=== PATIENT | female | born 1995 | race Caucasian/White ===

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

== ENCOUNTER 2017-02-20 08:18 | Emergency (ER) | payer SELFPAY ==
[~2017-02-20] VITALS: Ht 162.6 cm; Wt 95.5 kg
[~2017-02-20 08:18] MED LIST changes: +SUMA25TA3 PO
[2017-02-20 08:21] VITALS: Ht 162.6 cm; Wt 95.5 kg
[2017-02-20] MEDS ORDERED: CEPH-443 PO (08:57)
--- NOTE | 2017-02-20 09:08 | ERD ---
ER Documentation Chief Complaint Chief Complaint pt bib family with c/o left great toe infection since yesterday HPI 21-year-old female presented ED was infection of her left big toe. Patient stated that she went to pedicure yesterday. When she got home after pedicure, she noticed pain and redness on the medial aspect the left big toenail, later she noticed pus draining from the area. Patient reports history of frequent ingrown toenail, she goes to pedicure regularly to take care of the ingrown toenails. Denies fever or chills. Denies pain with weightbearing. ROS All systems reviewed and are negative except as per history of present illness. 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 02/20/17 Sumatriptan Succinate* (Sumatriptan Succinate*) 25 Mg Tablet, 25 MG PO BID Y for MIGRAINE HEADACHE for 10 Days, TAB May repeat after 2 hours if needed; MAX 200 mg/24 hours Prov:AUGUST STERLING PA-C 12/29/16 Reported Medications Multivit/Min/Fol Ac/Iron/Pren* ( S*) 1 Tab Tab, 1 TAB PO DAILY, TAB 05/23/16 Allergies Allergies: Coded Allergies: No Known Allergy (Unverified , 05/13/15) PMhx/Soc History of Surgery: Yes (FOOT SURGERY) Anesthesia Reaction: No Hx Neurological Disorder: Yes (FREQUENT HEADACHES) Hx Respiratory Disorders: No Hx Cardiac Disorders: No Hx Psychiatric Problems: No Hx Miscellaneous Medical Probl: No Hx Alcohol Use: No Hx Substance Use: No Hx Tobacco Use: No Physical Exam Vitals Vital Signs Date Time Temp Pulse Resp B/P Pulse Ox O2 Delivery O2 Flow Rate FiO2 02/20/17 08:21 98.3 67 18 137/72 98 Physical Exam General: Well-developed, well-nourished, conscious and coherent, in no distress Skin: Warm and dry without rash, good texture and turgor Head: Normocephalic without evidence of trauma Eyes: Sclera and conjunctivae normal; pupils equal, round, and reactive to light; extraocular movements are intact Chest: Normal AP diameter. Good expansion without retractions. Nontender. Lungs are clear to auscultate bilaterally with good tidal volume Heart: Regular rate and rhythm. No murmur, rub, or gallops heard Abdomen: Soft and nontender without masses, guarding, or rebound. Bowel sounds are active. No hepatosplenomegaly Back: Without spinal or CVA tenderness Pelvis: Nontender to palpation and stable to compression Extremities: Left big toe erythematous and tender at the medial aspect of the toenail, no purulent drainage. No ingrown toenail noted. Full range of motion. Good strength bilaterally. No clubbing, cyanosis, or edema. Peripheral pulses are intact. Sensation intact Neuro: Alert and oriented 4, GCS 15. Cranial nerves grossly intact. Motor and sensory exams nonfocal. Moves all extremities. Speech clear. Gait normal Procedures/MDM Well-appearing 21-year-old female presented to ED with what appears to be paronychia after pedicure. I suspect that she incurred a infection from a minor cut secondary to pedicure. No sign of severe cellulitis or osteomyelitis. I doubt infection is secondary to ingrown toenail. I do not feel nail excision is needed at this time. Patient is given prescription to Keflex, and advised follow-up with her PCP. If the infection is not responding to Keflex, we may need to give her coverage for Pseudomonas. Patient appears well, stable for discharge and outpatient management. Medical decision making shared with patient and family. Education provided to patient and family. Patient and family expressed understanding of the plan. Medications on discharge: Keflex. Follow-up: Primary care provider in 2-3 days or return to ED if worse. Disclaimer: Inadvertent spelling and grammatical errors are likely due to EHR/ dictation software use and do not reflect on the overall quality of patient care. Also, please note that the electronic time recorded on this note does not necessarily reflect the actual time of the patient encounter. Departure Diagnosis: Primary Impression: Paronychia of great toe, left Condition: Stable Patient Instructions: Understanding Ingrown Toenails, Paronychia Additional Instructions: Call your primary care doctor TOMORROW for an appointment during the next 2-3 days.See the doctor sooner or return here if your condition worsens before your appointment time. KRYSTAL SEO NP Feb 20, 2017 09:08
== END 2017-02-20 09:30 | disposition home or self-care (01) ==
LOC: FTE 08:18
DX: L03.032 Cellulitis of left toe (principal)
CPT/HCPCS: 99283

== ENCOUNTER 2017-02-21 21:30 | Emergency (ER) | payer MEDICAID ==
[~2017-02-21] VITALS: Ht 165.1 cm; Wt 96.4 kg
[~2017-02-21 21:30] MED LIST changes: +CEPH-443 PO
[2017-02-21 21:40] VITALS: Ht 165.1 cm; Wt 96.4 kg
[2017-02-22] MEDS ORDERED: METOCLOPRAMIDE 10 MG INJ IV ONE (00:30)
[2017-02-22] MEDS ORDERED: DIPHENHYDRAMINE 50 MG INJ IV ONE (00:30)
[2017-02-22] MEDS ORDERED: SOD CHLORIDE 0.9% 500 ML IV ONE (00:30)
[2017-02-22] MEDS ORDERED: FIORICET PO (01:14)
[2017-02-22] MEDS ORDERED: PROC10TA10 PO (01:14)
--- NOTE | 2017-02-22 01:17 | ERD ---
ER Documentation Chief Complaint Chief Complaint headache x 1 day HPI 21-year-old female presents with a headache 1 day. She has a history of migraines to feel the same. Headache is on the right side and associated with some photophobia. She has no fevers or chills. She has not had any trauma recently. She was unable to take care of her head with her home pain medications she sometimes is able to switch presents to the ER for help. ROS All systems reviewed and are negative except as per history of present illness. Medications Home Meds Active Scripts Prochlorperazine* (Prochlorperazine*) 10 Mg Tablet, 10 MG PO TID for HEADACHE, # 10 TAB Prov:GUERDA KUHN DO 02/22/17 Acetamin/Butalbital/Caffeine* (Fioricet*) [id number] Tab, 1 TAB PO Q4H Y for PAIN LEVEL 1-5, #10 TAB Prov:GUERDA KUHN DO 02/22/17 Cephalexin* (Keflex*) 500 Mg Capsule, 500 MG PO QID for 5 Days, CAP Prov:KRYSTAL SEO. CARE CONNECTOR 02/20/17 Sumatriptan Succinate* (Sumatriptan Succinate*) 25 Mg Tablet, 25 MG PO BID Y for MIGRAINE HEADACHE for 10 Days, TAB May repeat after 2 hours if needed; MAX 200 mg/24 hours Prov:AUGUST STERLING PA-C 12/29/16 Reported Medications Multivit/Min/Fol Ac/Iron/Pren* ( S*) 1 Tab Tab, 1 TAB PO DAILY, TAB 05/23/16 Allergies Allergies: Coded Allergies: No Known Allergy (Unverified , 02/21/17) PMhx/Soc History of Surgery: Yes (FOOT SURGERY) Anesthesia Reaction: No Hx Neurological Disorder: Yes (FREQUENT HEADACHES) Hx Respiratory Disorders: No Hx Cardiac Disorders: No Hx Psychiatric Problems: No Hx Miscellaneous Medical Probl: No Hx Alcohol Use: No Hx Substance Use: No Hx Tobacco Use: No Physical Exam Vitals Vital Signs Date Time Temp Pulse Resp B/P Pulse Ox O2 Delivery O2 Flow Rate FiO2 02/22/17 00:59 97.8 73 20 95 Room Air 02/21/17 21:40 98.3 71 20 128/82 98 Physical Exam Const: [] Mild distress Head: Atraumatic Eyes: Normal Conjunctiva, EOMI, PERRLA ENT: Normal External Ears, Nose and Mouth. Neck: Full range of motion..~ No meningismus. Skin: No petechiae or rashes Back: No midline or flank tenderness Ext: No cyanosis, or edema Neur: Awake and alert and oriented 3, cranial nerves II through XII intact, cerebellar finger to nose normal, normal gait. Psych: Normal Mood and Affect Results 24 hrs Current Medications Medications (Trade) Dose Ordered Sig/Pedrito Route PRN Reason Start Time Stop Time Status Last Admin Dose Admin Metoclopramide HCl (Reglan) 10 mg ONCE ONCE IV 02/22/17 00:30 02/22/17 00:31 DC 02/22/17 00:25 Diphenhydramine HCl 12.5 mg 12.5 mg ONCE ONCE IV 02/22/17 00:30 02/22/17 00:31 DC 02/22/17 00:25 Sodium Chloride (NS) 500 ml @ 500 mls/hr Q1H ONCE IV 02/22/17 00:30 02/22/17 01:29 02/22/17 00:29 Departure Diagnosis: Primary Impression: Acute headache Condition: Stable Patient Instructions: Headache, Migraine (Classical) Additional Instructions: Call your primary care doctor TOMORROW for an appointment during the next 2-3 days.See the doctor sooner or return here if your condition worsens before your appointment time. GUERDA KUHN DO Feb 22, 2017 01:17
[2017-02-22 01:28] VITALS: BP 118/60; PULSE 71; RESP 16; TEMP 97.8
== END 2017-02-22 01:28 | disposition home or self-care (01) ==
LOC: FTE 21:30
DX: R51 Headache (principal)
CPT/HCPCS: 96374; 96375; J1200; J2765; J7040; Z7502

== ENCOUNTER 2017-09-08 06:23 | Emergency (ER) | END 2017-09-08 08:12 | disposition home or self-care (01) ==

== ENCOUNTER 2018-04-23 21:00 | Emergency (ER) | payer OTHER ==
[~2018-04-23] VITALS: Ht 162.6 cm; Wt 90.1 kg
[~2018-04-23 21:00] MED LIST changes: +FIORICET PO; +IBUP800T48 PO; +PROC10TA10 PO
[2018-04-23 21:01] VITALS: BP 132/69; Ht 162.6 cm; Wt 90.1 kg
[2018-04-23] MEDS ORDERED: ACETAMINOPHEN 500 MG TAB PO STA (22:57)
--- NOTE | 2018-04-23 23:01 | ERD ---
ER Documentation Chief Complaint Chief Complaint flu-liked symptoms (nasal/chest congestion/cough) x 2days;26 weeks preg HPI This is a 23-year-old female who presents emergency department with complaints of flulike symptoms for about 2 days. Stated that she is exposed to her daughter and nephew who has cough and colds. Also complains of nasal congestion. Patient initially went to OB and was cleared to come back here in the emergency department. LMP: October 22, 2017. LUIS 07/29/2018. . Denies that this is the worst headache of her life, head injury, loss of consciousness, neck pain, neck stiffness, difficult swallowing, difficult breathing lying flat, shoulder pain, chest pain, back pain, bowel pain, pelvic pain, abdominal pain, constipation, diarrhea, vaginal bleeding, urinary symptoms, trauma, injury, falls, recent travel, recent long travel, calf pain, recent antibiotic use in the last 3 months, chills, seizures. No known drug allergies. No past medical history. No surgeries. Medication: vitamins. ROS All systems reviewed and are negative except as per history of present illness. Medications Home Meds Active Scripts Vit No.124/Iron/FA ( Vitamin Tablet) 1 Each Tablet, 1 EACH PO DAILY, #30 TAB Prov:NAOMY GRIFFIN 04/23/18 Acetaminophen* (Tylophen*) 500 Mg Capsule, 1 CAP PO Q6H PRN for PAIN AND OR ELEVATED TEMP, #20 CAP Prov:MANUELANJELICACORDELLJIGNA Paul 04/23/18 Amoxicillin/Potassium Clav (Amox-Clav 875-125 mg Tablet) 875-125 mg Tab, 1 TAB PO BID for 10 Days, #20 TAB Prov:ELIASCORDELLJIGNA Paul 04/23/18 Reported Medications Multivit/Min/Fol Ac/Iron/Pren* ( S*) 1 Tab Tab, 1 TAB PO DAILY, TAB 05/23/16 Discontinued Scripts Ibuprofen* (Motrin*) 800 Mg Tab, 800 MG PO Q6, #30 TAB Prov:NIDHI ARGUELLES PA-C 09/08/17 Prochlorperazine* (Prochlorperazine*) 10 Mg Tablet, 10 MG PO TID for HEADACHE, #10 TAB Prov:GUERDA KUHN DO 02/22/17 Acetamin/Butalbital/Caffeine* (Fioricet*) [id number] Tab, 1 TAB PO Q4H PRN for PAIN LEVEL 1-5, #10 TAB Prov:GUERDA KUHN DO 02/22/17 Cephalexin* (Keflex*) 500 Mg Capsule, 500 MG PO QID for 5 Days, CAP Prov:KRYSTAL SEO ARSON INVESTIGATOR 02/20/17 Sumatriptan Succinate* (Sumatriptan Succinate*) 25 Mg Tablet, 25 MG PO BID PRN for MIGRAINE HEADACHE for 10 Days, TAB May repeat after 2 hours if needed; MAX 200 mg/24 hours Prov:AUGUST STERLING PA-C 12/29/16 Allergies Allergies: Coded Allergies: No Known Allergy (Unverified , 04/23/18) PMhx/Soc History of Surgery: Yes (left foot surgery) Anesthesia Reaction: No Hx Neurological Disorder: Yes (FREQUENT HEADACHES) Hx Respiratory Disorders: No Hx Cardiac Disorders: No Hx Psychiatric Problems: No Hx Miscellaneous Medical Probl: No Hx Alcohol Use: No Hx Substance Use: No Hx Tobacco Use: No Smoking Status: Never smoker Physical Exam Vitals Vital Signs Date Temp Pulse Resp B/P (MAP) Pulse Ox O2 O2 Flow FiO2 Time Delivery Rate 04/23/18 98.4 94 20 99 Room Air 23:34 04/23/18 99.5 104 18 132/69 98 21:01 (90) Physical Exam Bilateral ears: Const: No acute distress Head: Atraumatic Eyes: Normal Conjunctiva ENT: Normal External Ears, Nose and Mouth. TMs are not erythematous. No bleeding. No discharge with no hearing loss. No mastoid tenderness. Nose: Midline. There is frontal and maxillary sinus tenderness to palpation. Throat: Uvula is midline and nondisplaced. Tonsils are +2 bilaterally with mild redness and has exudates to the left tonsils. Tolerating secretions. Patent airway. Speaks full and clear sentences. Neck: Full range of motion. No meningismus. No nuchal rigidity no signs of meningeal irritation. Resp: Clear to auscultation bilaterally Cardio: Regular rate and rhythm, no murmurs Abd: Soft, non tender, non distended. Normal bowel sounds. No abdominal tenderness. Skin: No petechiae or rashes color appears normal for ethnicity.. Back: No midline or flank tenderness Ext: No cyanosis, or edema Neur: Awake and alert. No neurological deficits. Psych: Normal Mood and Affect Results 24 hrs Current Medications Medications Dose Sig/Pedrito Start Time Status Last (Trade) Ordered Route PRN Stop Time Admin Dose Reason Admin 500 mg ONCE STAT 04/23/18 DC 04/23/18 Acetaminophen PO 22:57 23:02 (Tylenol 04/23/18 22:58 Tab) Procedures/MDM Diagnostic tests: Clinical exam. Treatment: Tylenol p.o. Re-evaluation: Denies pain. Differential diagnosis I have low suspicion for sepsis, meningitis, mastoiditis, peritonsillar abscess, bronchospasms, severe dehydration. Final diagnosis: Sinusitis. Exudative tonsillitis. Prescription: Augmentin. Tylenol. vitamins. Flonase. Follow-up with OB in the next 24-48 hours. Come back here in the emergency department for any new symptoms or any worsening symptoms. All questions and concerns were answered. Patient and family members verbalized understanding and agreed with plan of care. Hemodynamically stable on discharge. Clinical exam. Departure Diagnosis: Primary Impression: Exudative tonsillitis Additional Impression: Sinusitis Condition: Stable Additional Instructions: Follow-up with OB in the next 24-48 hours. Come back here in the emergency department for any new symptoms or any worsening symptoms. NAOMY GRIFFIN Apr 23, 2018 23:01
[2018-04-23] MEDS ORDERED: AMOX1TAB10 PO (23:20)
[2018-04-23] MEDS ORDERED: ACET500C5 PO (23:24)
[2018-04-23] MEDS ORDERED: PREN-93 PO (23:25)
[2018-04-23 23:34] VITALS: PULSE 94; RESP 20
== END 2018-04-23 23:35 | disposition home or self-care (01) ==
LOC: FTE 21:00
DX: O99.512 Diseases of the respiratory system complicating pregnancy, second trimester (principal); J03.90 Acute tonsillitis, unspecified; J32.9 Chronic sinusitis, unspecified; Z3A.26 26 weeks gestation of pregnancy
CPT/HCPCS: 99283

== ENCOUNTER 2018-04-23 21:39 | Outpatient (CLI) | payer OTHER ==
[~2018-04-23] VITALS: Ht 162.6 cm; Wt 89.9 kg
[2018-04-23 22:03] VITALS: Ht 162.6 cm; Wt 89.9 kg
[2018-04-23 22:04] VITALS: BP 114/65; PULSE 106; RESP 19
--- NOTE | 2018-04-23 22:16 | TRIAGE ---
OB Triage Datetime Report Generated by CPN: 04/23/2018 22:16 Datetime: 04/23/2018 22:09 Labor Evaluation Frequency: NONE Monitor Mode: External Resting Tone [place]: Relaxed Heart Rate FHR Baseline Rate: 140 Monitor Mode: External US Variability: Moderate 6-25 bpm Datetime: 04/23/2018 21:51 Time of Arrival: 04/23/2018 21:32 EGA: 26.1 Arrived By: Ambulatory Arrived From: Home Chief Complaint: Flu like symptoms Movement: Present Contractions: Denies/Absent Rupture of Membranes: Denies Vaginal Bleeding: None Vaginal Discharge: Denies Recent Sexual Intercouse: Denies Abdominal Trauma: Not Applicable Patient Complaints: Nausea; Vomiting; Fever; Runny Nose; Other Additional Patient Complaints: Left sided abdominal pain for 2 weeks Time Provider Notified: 04/23/2018 21:30 Provider Notified: Dr. Abraham Initial Plan: NST, then to ER Datetime: 04/23/2018 21:47 Stage of : OB Triage Assessment Type: Triage Maternal Assessment Level of Consciousness: Fully Conscious DTR's/Clonus: DTRs 2+; No Clonus Headache: Denies Blurred Vision: No Respiratory Effort: Unlabored; Regular Rhythm; Equal Expansion Breath Sounds, Left: Clear and Equal Breath Sounds, Right: Clear and Equal Nausea/Vomiting: Denies RUQ Epigastric Pain: Denies Lower Extremities Edema: None Degree: None Upper Extremities Edema: None Degree: None Facial Edema: None Temperature Route: Oral Fall Risk Assessment History of Falling: (0) No Secondary Diagnosis: (0) No Ambulatory Aid: (0) Bedrest/Nurse Assist IV Therapy: (0) No Gait: (0) Normal/Bedrest/Immobile Mental Status: (0) Oriented to Own Ability Fall Score: 0 Fall Risk Score Definition: No Risk: No action required Pain Assessment Pain Scale: 5 Pain Presence: Intermittent Pain Type: Cramping Pain Location: Abdomen (Annotations: Left sided)
--- NOTE | 2018-04-23 22:40 | PN ---
Triage Information Date/Time 04/23/18 Reason for visit: chest congestion fever, bodyache runny nose Weeks of Gestation 26w1d /Para Diabetes: none Hypertention: none Objective Vital Signs Date Temp Pulse Resp B/P (MAP) Pulse Ox O2 O2 Flow FiO2 Time Delivery Rate 04/23/18 98.7 106 19 114/65 95 Room Air 22:04 (81) Heart Rate: 140's Heart Rate Comments CAT I Contractions: None Disposition: Assessment/Plan A IUP 26w1d Flu syndrome P to ER for further evaluation NIYAH MARK MD Apr 23, 2018 22:37
[2018-04-23] MEDS ORDERED: AMOX1TAB10 PO (23:20)
[2018-04-23] MEDS ORDERED: ACET500C5 PO (23:24)
[2018-04-23] MEDS ORDERED: PREN-93 PO (23:25)
== END 2018-04-23 22:20 | disposition home or self-care (01) ==
LOC: OBT 21:39 → L-D 21:40 → OBT 22:20
PROVIDERS: ATTEND Obstetrics & Gynecology
DX: O98.512 Other viral diseases complicating pregnancy, second trimester (principal); B34.9 Viral infection, unspecified; Z3A.26 26 weeks gestation of pregnancy
CPT/HCPCS: G0463

== ENCOUNTER 2018-07-12 11:24 | Outpatient (CLI) | payer OTHER ==
[~2018-07-12] VITALS: Ht 165.1 cm; Wt 97.2 kg
[~2018-07-12 11:24] MED LIST changes: +ACET500C5 PO; +AMOX1TAB10 PO; -CEPH-443 PO; -FIORICET PO; -IBUP800T48 PO; +PREN-93 PO; -PROC10TA10 PO; -SUMA25TA3 PO
[2018-07-12 11:36] VITALS: Ht 165.1 cm; Wt 97.2 kg
[2018-07-12 11:37] VITALS: BP 128/72; PULSE 106; RESP 18
--- NOTE | 2018-07-12 12:46 | PN ---
Triage Information Date/Time Reason for visit: Congestion and some vaginal pressure Weeks of Gestation 37+ /Para n/a Diabetes: none Hypertention: none Objective Vital Signs Date Temp Pulse Resp B/P (MAP) Pulse Ox O2 O2 Flow FiO2 Time Delivery Rate 07/12/18 98.3 106 18 128/72 Room Air 11:37 (90) Heart Rate: 140's Contractions: >10 Minutes Apart Disposition: Discharge Assessment/Plan BPP 01/14 Cx closed Discharged to ER for further evaluation of cough Questions answered Follow up with provider Precautions discussed RENETTA COSBY M.D. Jul 12, 2018 12:46
--- NOTE | 2018-07-12 13:04 | TRIAGE ---
OB Triage Datetime Report Generated by CPN: 07/12/2018 13:03 Datetime: 07/12/2018 12:41 Labor Evaluation Frequency: irreg Monitor Mode: External Duration (sec)2399: 50-80 Quality: Mild Pattern: Normal: <= 5 Contractions in 10 Minutes Resting Tone [place]: Relaxed Heart Rate FHR Baseline Rate: 140 Monitor Mode: External US Variability: Moderate 6-25 bpm Accelerations: 15X15 Decelerations: None Category: Category I Pain Assessment Pain Presence: None/Denies Pain Type: N/A Datetime: 07/12/2018 12:06 Vaginal Exam Dilatation (cms): 0.5 Effacement (%): 70 Station: -2 Exam By: bjacobo Vaginal Bleeding: None Cervix, Consistency: Moderate Cervix, Position: Posterior Presentation 'A': Cephalic Datetime: 07/12/2018 11:51 Stage of : OB Triage Labor Evaluation Frequency: irreg Monitor Mode: External Duration (sec)2399: 40-90 Quality: Moderate Pattern: Normal: <= 5 Contractions in 10 Minutes Resting Tone [place]: Relaxed Heart Rate FHR Baseline Rate: 135 Monitor Mode: External US Variability: Moderate 6-25 bpm Accelerations: 15X15 Decelerations: None Category: Category I Pain Assessment Pain Presence: None/Denies Datetime: 07/12/2018 11:34 Assessment Type: Triage Maternal Assessment Level of Consciousness: Fully Conscious Headache: Generalized; Bilateral; Frontal Blurred Vision: No Respiratory Effort: Unlabored; Regular Rhythm; Equal Expansion Breath Sounds, Left: Clear and Equal Breath Sounds, Right: Clear and Equal Nausea/Vomiting: Present (Annotations: last vommitted last night) RUQ Epigastric Pain: Present Lower Extremities Edema: None Degree: None Upper Extremities Edema: Bilateral Upper Extremities Degree: 1+ Facial Edema: None Fall Risk Assessment History of Falling: (0) No Secondary Diagnosis: (0) No Ambulatory Aid: (0) Bedrest/Nurse Assist IV Therapy: (0) No Gait: (0) Normal/Bedrest/Immobile Mental Status: (0) Oriented to Own Ability Fall Score: 0 Fall Risk Score Definition: No Risk: No action required Datetime: 07/12/2018 11:31 Time of Arrival: 07/12/2018 11:19 EGA: 37.4 Arrived By: Wheelchair Arrived From: Home Movement: Present Contractions: Denies/Absent Rupture of Membranes: Denies Vaginal Bleeding: None Vaginal Discharge: Present Recent Sexual Intercouse: Denies Abdominal Trauma: Not Applicable Patient Complaints: Cough; Runny Nose Additional Patient Complaints: sore throat, congestion, dry cough since yesterday Time Provider Notified: 07/12/2018 12:02 Provider Notified: Mark Initial Plan: Lawai, EFM, V/S Datetime: 07/12/2018 11:30 Stage of : OB Triage Datetime: 04/23/2018 22:09 Heart Rate FHR Baseline Rate: 145 Accelerations: 10X10 Decelerations: None Comments: Appropriate for gestational age Datetime: 04/23/2018 21:51 EGA: 26.1 Datetime: 04/23/2018 21:47 Fall Score: 0 Fall Risk Score Definition: No Risk: No action required
== END 2018-07-12 12:49 | disposition home or self-care (01) ==
LOC: OBT 11:24 → L-D 11:25 → OBT 12:49
PROVIDERS: ATTEND Obstetrics & Gynecology
DX: O26.893 Other specified pregnancy related conditions, third trimester (principal); R05 Cough; R10.2 Pelvic and perineal pain; Z3A.37 37 weeks gestation of pregnancy
CPT/HCPCS: 76818; Z7500; G0463

== ENCOUNTER 2018-07-21 10:43 | Inpatient (IN) | payer OTHER ==
[~2018-07-21] VITALS: Ht 162.6 cm; Wt 95.8 kg
[~2018-07-21 10:43] MED LIST changes: -AMOX1TAB10 PO; -PRENAT PO
[2018-07-21 11:08] VITALS: Ht 162.6 cm; Wt 95.8 kg
[2018-07-21 11:09] VITALS: BP 125/71; PULSE 93
[2018-07-21] MEDS ORDERED: CARBOPROST 250 MCG INJ IM PRN (12:30)
[2018-07-21] MEDS ORDERED: OXYTOCIN 30 UNITS/LR 500 ML IV SCH ×2 (12:30)
[2018-07-21] MEDS ORDERED: LIDOCAINE 1% (MPF) 30 ML INJ INJ PRN (12:30)
[2018-07-21] MEDS ORDERED: MISOPROSTOL 200 MCG TAB PR PRN (12:30)
[2018-07-21] MEDS ORDERED: BUTORPHANOL 2 MG INJ IV PRN ×2 (12:30)
[2018-07-21] MEDS ORDERED: AMPICILLIN 2 GM/NS (PMX) 100 ML IV ONE (12:30)
[2018-07-21] MEDS ORDERED: OXYTOCIN 30 UNITS/LR 500 ML IV PRN (12:30)
[2018-07-21] MEDS ORDERED: METHYLERGONOVINE 0.2 MG INJ IM PRN (12:30)
[2018-07-21] MEDS: LACTATED RINGER'S 1,000 ML IV SCH (13:29)
[2018-07-21] MEDS: DEXTROSE 5%-LR 1,000 ML IV SCH ×2 (16:16→23:04)
[2018-07-21] MEDS: AMPICILLIN 1 GM/NS (PMX) 50 ML IV SCH ×2 (18:18→22:01)
[2018-07-21] MEDS ORDERED: FENTAnyl 2MCG/ML-ROPIV 0.2% 100 ML ONE (22:56)
--- NOTE | 2018-07-21 23:07 | PREAC ---
Date/Time of Note Date/Time of Note DATE: 07/21/18 TIME: 23:07 Anesthesia Eval and Record Evaluation Time Pre-Procedure Interview DATE: 07/21/18 TIME: 23:07 Age 23 Sex female NPO: 8 hrs Preoperative diagnosis LABOR PAIN Planned procedure LABOR EPIDURAL Past Medical History Past Medical History: Includes : : (2), Para: (1), Gestational age: (38 6/7) Surgery & Anesthesia Issues No known issue Meds Anticoagulation: No Beta Geraldine within 24 hr: No Reason Beta Geraldine not given: Pt. not on B-Geraldine Active Scripts Vit No.124/Iron/FA ( Vitamin Tablet) 1 Each Tablet, 1 EACH PO DAILY, #30 TAB Prov:NAOMY GRIFFIN 04/23/18 Acetaminophen* (Tylophen*) 500 Mg Capsule, 1 CAP PO Q6H PRN for PAIN AND OR ELEVATED TEMP, #20 CAP Prov:NAOMY GRIFFIN 04/23/18 Current Medications Lactated Ringer's 1,000 ml @ 125 mls/hr Q8H IV Last administered on 07/21/18at 13:29; Admin Dose 125 MLS/HR; Start 07/21/18 at 12:25 Ampicillin 50 ml @ 100 mls/hr Q4H IV Last administered on 07/21/18at 22:01; Admin Dose 100 MLS/HR; Start 07/21/18 at 16:30 Butorphanol Tartrate (Stadol) 1 mg Q2H PRN IV PAIN; Start 07/21/18 at 12:30 Butorphanol Tartrate (Stadol) 2 mg Q2H PRN IV .PAIN; Start 07/21/18 at 12:30 Lidocaine (Xylocaine 1% (Mpf)) 30 ml ONCE PRN INJ .EPISIOTOMY; Start 07/21/18 at 12:30 Oxytocin/Lactated Ringer's 500 ml @ 500 mls/hr ONCE POST IV ; Start 07/21/18 at 12:30 Oxytocin/Lactated Ringer's 500 ml @ 125 mls/hr POST IV ; Start 07/21/18 at 12:30 Oxytocin/Lactated Ringer's 500 ml @ 0 mls/hr ONCE PRN IV .VAGINAL BLEEDING; Start 07/21/18 at 12:30 Methylergonovine Maleate (Methergine) 0.2 mg ONCE PRN IM .VAGINAL BLEEDING; Start 07/21/18 at 12:30 Carboprost Tromethamine (Hemabate) 250 mcg ONCE PRN IM .VAGINAL BLEEDING; Start 07/21/18 at 12:30 Misoprostol (Cytotec) 1,000 mcg ONCE PRN [place] .VAGINAL BLEEDING; Start 07/21/18 at 12:30 Dextrose/Lactated Ringer's 1,000 ml @ 125 mls/hr Q8H IV Last administered on 07/21/18at 23:04; Admin Dose 125 MLS/HR; Start 07/21/18 at 15:15 Meds reviewed: Yes Allergies Coded Allergies: No Known Allergy (Unverified , 07/12/18) Allergies Reviewed: Yes Labs/Studies Labs Reviewed: Reviewed by anesthesiologist Result Diagram: 07/21/18 1320 Laboratory Tests 07/21/18 13:20 Blood Bank Test 07/21/18 13:20 Antibody Screen NEGATIVE Blood Type A POSITIVE Rh Immune Globulin Candidate NO test: N/A Pre-procedure Exam Last vitals Vital Signs Date Temp Pulse Resp B/P (MAP) Pulse Ox O2 O2 Flow FiO2 Time Delivery Rate 07/21/18 98.5 93 125/71 11:09 (89) Airway: Adequate mouth opening, Adequate thyromental dist Mallampati: Mallampati II Teeth: Normal Lung: Normal Heart: Normal ASA Physical Status ASA physical status: 2 Emergency: None Planned Anesthetic Neuraxial: Epidural Planned Pain Management Epidural Pre-operative Attestations Prior to commencing anesthesia and surgery, the patient was re-evaluated, there was verification of: *The patient's identity *The results of appropriate recent lab work and preoperative vital signs *The above evaluation not changing prior to induction *Anesthetic plan, risk benefits, alternative and complications discussed with patient/family; questions answered; patient/family understands, accepts and wishes to proceed. Theo Mitchell M.D. Jul 21, 2018 23:07
--- NOTE | 2018-07-21 23:25 | PAC ---
Date/Time of Note Date/Time of Note DATE: 07/21/18 TIME: 23:24 Post-Anesthesia Notes Post-Anesthesia Note Last documented vital signs Vital Signs Date Temp Pulse Resp B/P (MAP) Pulse Ox O2 O2 Flow FiO2 Time Delivery Rate 07/21/18 98.5 93 125/71 23:24 (89) Activity: WNL Respiratory function: WNL Cardiovascular function: WNL Mental status: Baseline Pain reasonably controlled: Yes Hydration appropriate: Yes Nausea/Vomiting absent: Yes Theo Mitchell M.D. Jul 21, 2018 23:25
[2018-07-21] MEDS ORDERED: FENTAnyl 2MCG/ML-ROPIV 0.2% 100 ML BAG EPI SCH (23:30)
[2018-07-21] MEDS ORDERED: NALOXONE (0.4 MG/ML) INJ IV PRN (23:30)
[2018-07-21] MEDS ORDERED: TRIMETHOBENZAMIDE 100 MG/ML VIAL IM PRN (23:30)
[2018-07-21] MEDS ORDERED: DIPHENHYDRAMINE 50 MG INJ IV PRN (23:30)
[2018-07-21] MEDS ORDERED: ONDANSETRON 4 MG INJ IV PRN (23:30)
[2018-07-22] MEDS: LACTATED RINGER'S 1,000 ML IV SCH (00:55)
[2018-07-22] MEDS: AMPICILLIN 1 GM/NS (PMX) 50 ML IV SCH ×2 (01:56→05:59)
[2018-07-22] MEDS ORDERED: ACETAMINOPHEN 325 MG TAB PO ONE (08:30)
--- NOTE | 2018-07-22 10:51 | LDN ---
Date/Time of Note Date/Time of Note DATE: 07/22/18 TIME: 10:48 Delivery Summary Weeks of Gestation 38 Placenta Delivered: Spontaneously, Manually Meconium: none Episiotomy: No Anesthesia type: Epidural Sponge & Needle done & correct: Yes All needle counts correct: Yes Any foreign bodies felt in the: No Infant Delivery Information Sex Infant Sex: male Apgars 1 Minute: 9 5 Minute: 9 Suctioning Nose & mouth suctioned at audi: No Delee suction performed: No Umbilical Cord Umbilical cord with: 3 Vessels Cord presentations: no nuchal cord Cord Blood was obtained: Yes AUGUST JEFFERY MD Jul 22, 2018 10:51
[2018-07-22] MEDS ORDERED: OXYTOCIN 30 UNITS/LR 500 ML IV SCH (11:29)
[2018-07-22 11:30] VITALS: BP 122/73; PULSE 72
[2018-07-22] MEDS ORDERED: METHYLERGONOVINE 0.2 MG INJ IM PRN (11:30)
[2018-07-22] MEDS ORDERED: NACL 0.9% 3 ML SYG IV SCH (11:30)
[2018-07-22] MEDS ORDERED: WITCH HAZEL/GLYCERIN PAD PR PRN (11:30)
[2018-07-22] MEDS ORDERED: ACETAMINOPHEN 500 MG TAB PO PRN (11:30)
[2018-07-22] MEDS ORDERED: OXYTOCIN 30 UNITS/LR 500 ML IV PRN (11:30)
[2018-07-22] MEDS ORDERED: BENZOCAINE 20% 56 ML SPRAY TOP PRN (11:30)
[2018-07-22] MEDS ORDERED: MISOPROSTOL 200 MCG TAB PR PRN (11:30)
[2018-07-22] MEDS ORDERED: SENNA/DOCUSATE NA (8.6MG/50MG) TAB PO PRN (11:30)
[2018-07-22] MEDS ORDERED: CARBOPROST 250 MCG INJ IM PRN (11:30)
[2018-07-22] MEDS ORDERED: OXYCODONE/ASPIRIN (4.88/325) TAB PO PRN ×2 (11:30)
[2018-07-22] MEDS: IBUPROFEN 600 MG TAB PO SCH ×3 (11:54→23:41)
[2018-07-22 12:00] VITALS: BP 114/66; PULSE 60; RESP 18
[2018-07-22 16:00] VITALS: BP 138/93; PULSE 79; RESP 18
[2018-07-22 19:30] VITALS: BP 114/67; PULSE 70; RESP 19
[2018-07-23] MEDS: IBUPROFEN 600 MG TAB PO SCH ×4 (05:58→23:44)
[2018-07-23 08:00] VITALS: BP 115/59; PULSE 70; RESP 18
--- NOTE | 2018-07-23 11:29 | PD.PPDC ---
CHARACTER ACTRESS Discharge Instruction Condition [id number] Patient Condition: Bzihy7g Good Diet [id number] Diet: Fyeqk4t Resume Regular Diet Activity/Restrictions [id number] Activity: Heedo7r Normal Activity May Shower [id number] Restrictions: Byyor0e No Exercising No Lifting No Driving No Sexual Activity Nothing in the Vagina No [place] No Tampons, douche Follow-up Follow-up with Physician: 3, Week/Weeks Return to clinic for [id number] PREPRESS OPERATOR Instructions: [id number] Fever greater than 101 Chills Worsening abdominal pain Excessive Vaginal Bleeding More than 2 pads per hour Unable to tolerate diet [id number] OB Instructions: [id number] Breast Tenderness Depression Blurried Vision Headache [id number] Surgical Instructions: Awawl8g Incisional Drainage Incisional Redness AUGUST JEFFERY MD Jul 23, 2018 11:29
[2018-07-23 15:33] VITALS: BP 119/68; PULSE 73; RESP 18
[2018-07-23 20:00] VITALS: BP 110/60; PULSE 69; RESP 17
[2018-07-24 03:10] VITALS: BP 115/68; PULSE 68; RESP 19
[2018-07-24] MEDS: IBUPROFEN 600 MG TAB PO SCH ×2 (05:41→12:03)
[2018-07-24] MEDS ORDERED: DIPHTH/TET/ACEL PERTUSS (ADULT) 0.5 ML VIAL IM* ONE (09:00)
--- NOTE | 2018-07-25 14:00 | DELSUM ---
Delivery Summary A-C Datetime Report Generated by CPN: 07/25/2018 13:59 DELIVERY PERSONNEL Chefs: Krystina Crawforda MATERNAL INFORMATION Delivery Anesthesia: Epidural Medications in Delivery: 30 UNITS PITOCIN Delivery QBL (ml): 177 Placenta Cultured: No Maternal Complications: None LABOR SUMMARY EDC: 07/29/2018 00:00 No. Babies in Womb: 1 Attempted: No Labor Anesthesia: None LABOR INFORMATION Reason for Induction: Oligohydramnios Reason for Induction- Other: ANALY 3.7 CM Onset of Labor: 07/21/2018 21:53 Complete Dilatation: 07/22/2018 08:50 Oxytocin: Augmentation Group B Beta Strep: Positive Antibiotics # of Doses: 5 Antibiotics Time of Last Dose: 07/22/2018 05:59 Steroids Given: None Reason Steroids Not Administered: Not Applicable MEMBRANES Membranes Rupture Method: Artificial Rupture of Membranes: 07/22/2018 09:06 Length of Rupture (hr): 0.02 Amniotic Fluid Color: Clear Amniotic Fluid Amount: Small Amniotic Fluid Odor: None STAGES OF LABOR Stage 1 hr: 10 Stage 1 min: 57 Stage 2 hr: 0 Stage 2 min: 17 Stage 3 hr: 0 Stage 3 min: 7 Total Time in Labor hr: 11 Total Time in Labor min: 21 VAGINAL DELIVERY Episiotomy: None Laceration Extension: N/A Laceration Type: None Laceration Repair: No Initial Vag Sponge Count: 10 Final Vag Sponge Count: 10 Initial Vag Sharps Count: 1 Final Vag Sharps Count: 1 BABY A INFORMATION Infant Delivery Date/Time: 07/22/2018 09:07 Method of Delivery: Vaginal Born in Route : No : N/A Forceps: N/A Vacuum Extraction: N/A Shoulder Dystocia : No SHOULDER DYSTOCIA BABY A Infant Delivery Date/Time: 07/22/2018 09:07 PRESENTATION/POSITION BABY A Presentation: Cephalic Cephalic Presentation: Vertex Breech Presentation: Double Footling PLACENTA INFORMATION BABY A Placenta Delivery Time : 07/22/2018 09:14 Placenta Method of Delivery: Manual Removal Placenta Status: Delivered SCORES BABY A Heart Rate 1 min: >100 bpm Resp Effort 1 min: Good Cry Reflex Irritability 1 min: Cough/Sneeze/Pulls Away Muscle Tone 1 min: Active Motion Color 1 min: Body [place], Extremit Blue Resuscitation Effort 1 min: Tactile Stimulation SCORE 1 MIN: 9 Heart Rate 5 min: >100 bpm Resp Effort 5 min: Good Cry Reflex Irritability 5 min: Cough/Sneeze/Pulls Away Muscle Tone 5 min: Active Motion Color 5 min: Body [place], Extremit Blue Resuscitation Effort 5 min: Tactile Stimulation SCORE 5 MIN: 9 INFORMATION BABY A Gestational Age at Delivery: 39.0 Gestational Status: Full Term- 39- 40.6 Weeks Outcome : Liveborn Condition : Stable Infant Sex: Male IDENTIFICATION/MEDS BABY A ID Band Number: [id number] ID Band Location: Right Leg; Left Arm Sensor Applied: Yes Sensor Number: [id number] Sensor Location : Cord Clamp Vitamin K Given : Not Given Erythromycin Given: Not Given WEIGHT/LENGTH BABY A Birthweight (gm): 3370 Weight (lb): 7 Weight (oz): 7 Length (in): 19.00 Infant Length (cm): 48.26 CORD INFORMATION BABY A No. Cord Vessels: 3 Nuchal Cord : N/A Cord Blood Taken: Yes Banking/Donate Info: NO Suction: Mouth; Nose ASSESSMENT BABY A Complications: Oligohydramnios Physical Findings at Delivery: Within Normal Limits Infant Respirations: Appears Normal Torch Straightener/ALS Called : No Infant Care By: JENNIFER Guzman Transferred To: Remains with Mother
== END 2018-07-24 13:05 | disposition home or self-care (01) | DRG 807 ==
LOC: L-D 10:43 → OBT 10:43 → L-D 12:30 → PP1 07-22 11:24
PROVIDERS: ADMIT Obstetrics & Gynecology; ATTEND Obstetrics & Gynecology
PROC: 10E0XZZ Delivery of Products of Conception, External Approach (ICD-10-PCS; principal; 2018-07-22)
DX: O80 Encounter for full-term uncomplicated delivery (principal); Z37.0 Single live birth; Z3A.38 38 weeks gestation of pregnancy
CPT/HCPCS: 62322; 76815; 76818; 85025; 85610; 85730; 86592; 86850; 86900; 86901; 87340; 90715; G0463; J0290; J2590; J3010; J7120; J7121

== ENCOUNTER → 2018-10-17 | Emergency (ER) | payer OTHER ==
[~2018-10-17] VITALS: Wt 85.0 kg
[~2018-10-17] MED LIST changes: -ACET500C5 PO; +GUAI120S25 PO
[2018-10-17 12:06] VITALS: BP 128/78; PULSE 83; RESP 18
--- NOTE | 2018-10-17 15:29 | ERD ---
ER Documentation Chief Complaint Chief Complaint cough and mild sob possible mold exposure , onset for 3 days. no distress HPI Patient is a 23 years old female currently breast-feeding with no known past medical history presenting to the clinic for cough X few days. Patient reports hearing about mold outbreak in the news and admits to seeing mold in her AC. Patient denies fever, chills, nights, chest pain, shortness of breath, difficulty breathing, throat pain, coryza. Patient denies taking any OTC medication as she is currently breast-feeding. ROS All systems reviewed and are negative except as per history of present illness. Medications Home Meds Active Scripts Vit No.124/Iron/FA ( Vitamin Tablet) 1 Each Tablet, 1 EACH PO DAILY, #30 TAB Prov:NAOMY GRIFFIN 04/23/18 Allergies Allergies: Coded Allergies: No Known Allergy (Unverified , 07/12/18) PMhx/Soc Medical and Surgical Hx: pt denies Medical Hx, pt denies Surgical Hx History of Surgery: Yes (FOOT SURGERY) Anesthesia Reaction: No Hx Neurological Disorder: Yes (FREQUENT HEADACHES) Hx Respiratory Disorders: No Hx Cardiac Disorders: No Hx Psychiatric Problems: No Hx Miscellaneous Medical Probl: No Hx Alcohol Use: No Hx Substance Use: No Hx Tobacco Use: No Physical Exam Vitals Vital Signs Date Temp Pulse Resp B/P (MAP) Pulse Ox O2 O2 Flow FiO2 Time Delivery Rate 10/17/18 98.9 83 18 128/78 97 12:06 (95) Physical Exam Const: No acute distress Head: Atraumatic Eyes: Normal Conjunctiva ENT: Normal External Ears, Nose and Mouth. Neck: Full range of motion. No meningismus. Resp: Clear to auscultation bilaterally. No rales, rhonchi, wheezing. No signs of respiratory distress. Cardio: Regular rate and rhythm, no murmurs Neur: Awake and alert Psych: Normal Mood and Affect Procedures/MDM Patient was seen and evaluated for cough without any complications. Patient has an unremarkable physical exam and does not require no further imaging or work- up. Low suspicion for mold versus bacterial versus viral infection of the lungs. It is stable and ready for discharge. Patient will be discharged with guaifenesin as it is safe with breast-feeding and . Follow up with PCP. Departure Diagnosis: Primary Impression: Cough Condition: Stable Patient Instructions: Cough, Chronic, Uncertain Cause, (Adult) Referrals: [facility] Additional Instructions: Patient advised to return to the ED immediately for new or worsening symptoms. Patient advised to follow up with primary care provider in the next 24-48 hours. Patient verbalized understanding and agrees with treatment plan and course of action. If patient has no primary care they may follow up with [facility] [address] [place] [id number] or [facility] [id number] [place] [id number] or [facility] [address] [place] [address] MACARIO WELCH PA-C Oct 17, 2018 15:29
== END | disposition home or self-care (01) ==
LOC: FTE 11:45
DX: R05 Cough (principal)
CPT/HCPCS: 99282

== ENCOUNTER 2018-11-24 07:46 | Emergency (ER) | payer OTHER ==
[~2018-11-24] VITALS: Ht 162.6 cm; Wt 89.2 kg
[~2018-11-24 07:46] MED LIST changes: +IBUP800T48 PO
[2018-11-24 07:48] VITALS: BP 135/67; PULSE 64; RESP 18; Ht 162.6 cm; Wt 89.2 kg
[2018-11-24] MEDS ORDERED: KETOROLAC 30 MG INJ IV STA (08:06)
[2018-11-24] MEDS ORDERED: ONDANSETRON 4 MG INJ IV STA (08:06)
[2018-11-24] MEDS ORDERED: SOD CHLORIDE 0.9% 1,000 ML IV STA (08:06)
== END 2018-11-24 09:24 | disposition home or self-care (01) ==
LOC: FTE 07:46
DX: G43.909 Migraine, unspecified, not intractable, without status migrainosus (principal)
CPT/HCPCS: 36415; 81001; 81025; 96374; 96375; J1885; J2405; J7030; Z7502